=== PATIENT | female | born 1970 | race Caucasian/White ===

== ENCOUNTER 2017-07-19 09:06 | Emergency (ER) | payer OTHER ==
[~2017-07-19] VITALS: Ht 154.9 cm; Wt 97.1 kg
[2017-07-19 09:08] VITALS: BP 140/91
[2017-07-19] MEDS ORDERED: ZYRTEC10 M3 PO (09:08)
[2017-07-19] MEDS ORDERED: PREDNISONE10 MG PO (10:04)
== END 2017-07-19 10:30 | disposition home or self-care (01) ==
LOC: ED 09:06
DX: L50.8 Other urticaria (principal); T78.40XA Allergy, unspecified, initial encounter; F17.200 Nicotine dependence, unspecified, uncomplicated; Z79.899 Other long term (current) drug therapy; Y92.9 Unspecified place or not applicable

== ENCOUNTER 2017-08-15 18:11 | Emergency (ER) | payer OTHER ==
[~2017-08-15] VITALS: Ht 154.9 cm; Wt 97.5 kg
[~2017-08-15 18:11] MED LIST: PREDNISONE10 MG PO; ZYRTEC10 M3 PO
[2017-08-15 18:12] VITALS: BP 120/87
[2017-08-15] MEDS ORDERED: PREDNISONE10 MG PO (19:16)
[2017-08-15] MEDS ORDERED: ZOFRAN ODT4 MG SL (19:16)
[2017-08-15] MEDS ORDERED: ATARAX,VISTARIL50 MG PO (19:16)
== END 2017-08-15 20:15 | disposition home or self-care (01) ==
LOC: ED 18:11
DX: L50.9 Urticaria, unspecified (principal); F17.200 Nicotine dependence, unspecified, uncomplicated; Z79.899 Other long term (current) drug therapy

== ENCOUNTER 2018-05-24 02:36 | Emergency (ER) | payer BC ==
[~2018-05-24] VITALS: Ht 154.9 cm; Wt 86.6 kg
[2018-05-24 02:36] VITALS: BP 143/85
[~2018-05-24 02:36] MED LIST changes: +ATARAX,VISTARIL50 MG PO; +ZOFRAN ODT4 MG SL
[2018-05-24] MEDS ORDERED: AMOXICILLIN500 M2 PO (03:44)
== END 2018-05-24 04:12 | disposition home or self-care (01) ==
LOC: ED 02:36
DX: J02.0 Streptococcal pharyngitis (principal); F17.200 Nicotine dependence, unspecified, uncomplicated

== ENCOUNTER → 2019-08-21 | Outpatient (CLI) | payer BC ==
[~2019-08-21] MED LIST changes: +AMOXICILLIN500 M2 PO
== END | disposition home or self-care (01) ==
LOC: MAMMO 09:30
DX: Z12.31 Encounter for screening mammogram for malignant neoplasm of breast (principal); N63.13 Unspecified lump in the right breast, lower outer quadrant; N63.21 Unspecified lump in the left breast, upper outer quadrant; N88.8 Other specified noninflammatory disorders of cervix uteri; D25.1 Intramural leiomyoma of uterus; R93.89 Abnormal findings on diagnostic imaging of other specified body structures

== ENCOUNTER → 2019-09-04 | Outpatient (CLI) | payer BC | END | disposition home or self-care (01) | LOC: MAMMO 08:29 | DX: N63.14 Unspecified lump in the right breast, lower inner quadrant (principal); N63.13 Unspecified lump in the right breast, lower outer quadrant; N63.21 Unspecified lump in the left breast, upper outer quadrant ==

== ENCOUNTER → 2022-05-25 | Outpatient (CLI) | payer BC | END | disposition home or self-care (01) | LOC: MAMMO 12:39 | PROVIDERS: ATTEND Family Medicine | DX: N63.11 Unspecified lump in the right breast, upper outer quadrant (principal); N63.21 Unspecified lump in the left breast, upper outer quadrant ==

== ENCOUNTER → 2022-06-13 | Outpatient (CLI) | payer BC | END | disposition home or self-care (01) | LOC: US 05-25 13:30 | PROVIDERS: ATTEND Family Medicine | DX: D25.1 Intramural leiomyoma of uterus (principal); K76.0 Fatty (change of) liver, not elsewhere classified; K76.89 Other specified diseases of liver ==

== ENCOUNTER → 2022-06-16 | Outpatient (CLI) | payer BC ==
[2022-06-16 08:58] LABS: BASO # 0.1 10*3/uL (0.0-0.1); BASO % 0.6 % (0.0-1.0); EOS # 0.2 10*3/uL (0.0-0.4); EOS % 2.5 % (1.0-4.0); HEMATOCRIT 45.4 % (37.0-47.0); LYMPH # 2.8 10*3/uL (1.3-4.4); LYMPH % 33.9 % (27.0-41.0); MEAN CELL VOLUME 90.1 fl (81.0-99.0); MEAN CORPUSCULAR HGB 31.9 pg (27.0-31.0); MEAN CORPUSCULAR HGB CONC 35.5 g/dl (33.0-37.0); MEAN PLATELET VOLUME 10.8 fl (9.6-12.3); MONO # 0.5 10*3/uL (0.1-1.0); MONO % 5.5 % (3.0-9.0); NEUT # 4.7 10*3/uL (2.3-7.9); NEUT % 57.3 % (47.0-73.0); PLATELET COUNT AUTOMATED 242 10*3/uL (130-400); RED BLOOD COUNT 5.04 10*6/uL (4.10-5.10); RED CELL DISTRI WIDTH 11.9 % (0-14.5); WHITE BLOOD COUNT 8.2 10*3/uL (4.8-10.8)
[2022-06-16 09:31] LABS: ALKALINE PHOSPHATASE 54 U/L (46-116); BUN 12 mg/dl (9-23); CHLORIDE 108 mmol/L (98-107); CHOLESTEROL 165 mg/dL (<200); LDL CHOLESTEROL 89 mg/dL (9-159); SGPT/ALT 39 U/L (10-49); THYROID STIM HORMONE (HS) 1.364 uIU/ml (0.550-4.780); TOTAL PROTEIN 6.6 gm/dL (6.0-8.0); TRIGLYCERIDES 127 mg/dl (<150)
== END | disposition home or self-care (01) ==
LOC: LAB 08:32
PROVIDERS: ATTEND Student in an Organized Health Care Education/Training Program
DX: Z00.00 Encounter for general adult medical examination without abnormal findings (principal); E66.9 Obesity, unspecified; R53.83 Other fatigue